=== PATIENT | male | born 1990 | race Caucasian/White ===

== ENCOUNTER 2024-12-31 15:56 | Emergency (ER) | payer OTHER ==
[~2024-12-31] VITALS: Ht 185.4 cm; Wt 86.2 kg
[2024-12-31 17:07] LABS: HEMATOCRIT 46.1 % (39.0-48.0); HEMOGLOBIN 15.7 g/dL (13-16.00); MEAN CELL VOLUME 92.5 fL (80.0-100.00); MEAN CORPUSCULAR HEMOGLOBIN 31.6 pg (27.00-32.0); MEAN CORPUSCULAR HGB CONC 34.1 g/dl (32.0-36.0); PLATELET COUNT 272 K/uL (150-450); RED BLOOD COUNT 4.98 M/uL (4.00-6.00); RED CELL DISTRIBUTION WIDTH 12.2 % (11.5-14.5)
[2024-12-31 17:28] LABS: INFLUENZA A AG NEGATIVE (NEGATIVE)
[2024-12-31 18:28] LABS: COVID-19 AG NEGATIVE (NEGATIVE)
== END 2024-12-31 18:48 | disposition home or self-care (01) ==
LOC: ER 15:56
PROVIDERS: General Practice
DX: R50.9 Fever, unspecified (principal); J06.9 Acute upper respiratory infection, unspecified; Z20.822 Contact with and (suspected) exposure to COVID-19